=== PATIENT | male | born 2000 | race Caucasian/White ===

== ENCOUNTER 2022-08-11 14:20 | Emergency (ER) | payer OTHER ==
[~2022-08-11] VITALS: Ht 180.3 cm; Wt 65.0 kg
[2022-08-11 14:24] VITALS: BP 126/87
== END 2022-08-11 16:46 | disposition home or self-care (01) ==
LOC: ER 14:20
DX: T23.122A Burn of first degree of single left finger (nail) except thumb, initial encounter (principal); X08.8XXA Exposure to other specified smoke, fire and flames, initial encounter; Y93.89 Activity, other specified; Y92.89 Other specified places as the place of occurrence of the external cause; Y99.8 Other external cause status
CPT/HCPCS: 99282